=== PATIENT | female | born 1980 | race Caucasian/White ===

== ENCOUNTER 2016-07-21 17:17 | Emergency (ER) | payer MEDICAID, OTHER ==
[~2016-07-21] VITALS: Wt 89.0 kg
[2016-07-21] MEDS ORDERED: CLIN-73 PO (19:28)
[2016-07-21] MEDS ORDERED: CLINDAMYCIN 300 MG INJ IM ONE (19:30)
--- NOTE | 2016-07-21 19:34 | ERD ---
ER Documentation Chief Complaint Date/Time DATE: 07/21/16 TIME: 19:31 Chief Complaint LEFT BIG TOE PAIN X 4 DAYS HPI This is a 36-year-old female presents to the ER with left big toe pain that started 4 days ago. Patient has been having left great toe nail bed to pass and pain. She denies any toenail pain. Patient denies any fevers or chills. She went to her primary care doctor on Monday and got cephalexin, she has been taking antibiotics however has not worked. Patient denies any fevers or chills. She does have a past medical history of diabetes, she is compliant with her medication. She denies any trauma. ROS . 12 point review of systems was done, all negative except per HPI. Medications Home Meds Active Scripts Clindamycin Hcl* (Clindamycin Hcl*) 300 Mg Capsule, 300 MG PO TID for 7 Days, CAP Prov:MEGAN HUFFMAN Anne 07/21/16 PMhx/Soc History of Surgery: No Anesthesia Reaction: No Hx Neurological Disorder: No Hx Respiratory Disorders: No Hx Cardiac Disorders: No Hx Psychiatric Problems: No Hx Miscellaneous Medical Probl: Yes (DM) Hx Alcohol Use: No Hx Substance Use: No Hx Tobacco Use: No Smoking Status: Never smoker Physical Exam Vitals Vital Signs Date Time Temp Pulse Resp B/P Pulse Ox O2 Delivery O2 Flow Rate FiO2 07/21/16 17:20 98.8 77 18 153/94 99 Physical Exam GENERAL: The patient is well developed and appropriate for usual state of health , in no apparent distress. HEENT: Atraumatic. CHEST: Clear to auscultation bilaterally. There are no rales, wheezes or rhonchi. HEART: Regular rate and rhythm. No murmurs, clicks, rubs or gallops. EXTREMITIES: Left great toe: There is a collection of pus to the lower nail bed. NEURO: Alert and oriented. SKIN: There is no apparent rash or petechia. The skin is warm and dry. Results 24 hrs Current Medications Medications (Trade) Dose Ordered Sig/Shari Route PRN Reason Start Time Stop Time Status Last Admin Dose Admin Clindamycin Phosphate (Cleocin) 600 mg ONCE ONCE IM 07/21/16 19:30 07/21/16 19:31 Procedures/MDM Paronychia was drained with one poke with an 18 gauge needle. Patient was given clindamycin IM with no complications here in the ER. Patient will be given clindamycin to take at home. At this time patient is afebrile and well- appearing. I doubt severe or deep space infection. She has normal range of motion of her toe I doubt septic joint. Doubt osteomyelitis. Patient is to follow-up with her primary care doctor within 1-2 days or return to ER sooner if symptoms worsen. My medical decision making was shared with the patient she understands and agrees with plan. Departure Diagnosis: Primary Impression: Toe infection Condition: Stable Patient Instructions: Paronychia Additional Instructions: Llame al doctor MAANA y felton theresa KALINA PARA DENTRO DE 1-2 PHILIP.Dgale a la secretaria que nosotros le instruimos hacer esta kalina.Avise o llame si conde condicin se empeora antes de la kalina. Regresa aqui si peor o no mejor. MEGAN HUFFMAN Jul 21, 2016 19:34
== END 2016-07-21 19:55 | disposition home or self-care (01) ==
LOC: FTE 17:17
DX: L08.9 Local infection of the skin and subcutaneous tissue, unspecified (principal); E11.9 Type 2 diabetes mellitus without complications
CPT/HCPCS: 96372; Z7502; Z7610

== ENCOUNTER 2016-07-28 16:40 | Emergency (ER) | payer MEDICAID ==
[~2016-07-28] VITALS: Ht 160 cm; Wt 92.0 kg
[~2016-07-28 16:40] MED LIST: CLIN-73 PO
[2016-07-28 16:42] VITALS: Ht 160 cm; Wt 92.0 kg
--- NOTE | 2016-07-28 18:02 | RADRPT ---
PROCEDURE: XR Right Tibia and Fibula. CLINICAL INDICATION: Right lower leg pain. TECHNIQUE: Two views. Frontal and lateral. COMPARISON: No prior studies are available for comparison. FINDINGS: There is no fracture or dislocation. The soft tissues are normal. Articular surfaces are intact. There is no lytic or blastic lesion. There is no radiopaque foreign body. IMPRESSION: 1. Normal images of the right tibia and fibula. RPTAT: QQ .Lew Aguirre MD, MD Date Time Electronically viewed and signed by .Lew Aguirre MD, MD on 07/28/2016 18:01 .R/
[2016-07-28] MEDS ORDERED: IBUP-1542 PO (18:22)
--- NOTE | 2016-07-28 18:29 | ERD ---
ER Documentation Chief Complaint Date/Time DATE: 07/28/16 TIME: 18:25 Chief Complaint s/p mech fall has right leg pain HPI Patient is a 36-year-old female past medical history of diabetes who presents emergency department with right lower leg pain status post a mechanical fall. Patient states that she was making her bed earlier today when she accidentally tripped over the leg of her mattress frame. She denies any previous injuries to the affected extremity. Patient denies any numbness or tingling to the affected extremity. Patient is able to ambulate without any difficulty. Patient has any fevers or chills. ROS All systems reviewed and are negative except as per history of present illness. Medications Home Meds Active Scripts Ibuprofen* (Motrin*) 600 Mg Tab, 600 MG PO Q6, #30 TAB Prov:GERMAIN CLARK PA-C 07/28/16 Clindamycin Hcl* (Clindamycin Hcl*) 300 Mg Capsule, 300 MG PO TID for 7 Days, CAP Prov:MEGAN HUFFMAN 07/21/16 Allergies Allergies: Coded Allergies: No Known Allergy (Unverified , 07/21/16) PMhx/Soc History of Surgery: Yes (APPENDECTOMY) Anesthesia Reaction: No Hx Neurological Disorder: No Hx Respiratory Disorders: No Hx Cardiac Disorders: No Hx Psychiatric Problems: No Hx Miscellaneous Medical Probl: Yes (DM) Hx Alcohol Use: No Hx Substance Use: No Hx Tobacco Use: No Smoking Status: Never smoker Physical Exam Vitals Vital Signs Date Time Temp Pulse Resp B/P Pulse Ox O2 Delivery O2 Flow Rate FiO2 07/28/16 16:42 98.1 87 20 134/87 99 Physical Exam GENERAL: Well-developed, well-nourished female. Appears in no acute distress. HEAD: Normocephalic, atraumatic. EYES: Pupils are equally reactive bilaterally. EOMs grossly intact. No conjunctival erythema. ENT: Moist mucous membranes. No uvula deviation. No kissing tonsils. NECK: Supple. No meningismus. Normal range of motion of the neck. LUNG: Clear to auscultation bilaterally. No rhonchi, wheezing, rales or coarse breath sounds. HEART: Regular rate and rhythm. No murmurs, rubs or gallops. EXTREMITIES: Equal pulses bilaterally. No peripheral clubbing, cyanosis or edema. No unilateral leg swelling. NEUROLOGIC: Alert and oriented. Moving all four extremities without any difficulty. Normal speech. Steady gait. SKIN: Normal color. Warm and dry. No rashes or lesions. RIGHT LOWER LEG: No obvious deformity. Minimal swelling noted. Ecchymosis noted to mid fibula, lateral aspect. Skin intact. Normal ROM of knee and ankle. Tender to palpation of the mid and distal tib/fib. No joint line tenderness. Sensation intact to light touch. Neurovascularly intact. (Able to plantarflex, dorsiflex, yousif foot, invert foot, raise big toe.) 2+ DP and DT pulses. Compartments soft. No calf pain elicited. Procedures/MDM ED COURSE: The patient was stable throughout ED course. I kept the patient and/or family informed of laboratory and diagnostic imaging results throughout the ED course. DIAGNOSTIC IMAGING: Read by radiologist. DIAGNOSTIC IMAGING REPORT Patient: KIERRA HOOKS : 1980 Age: 36 Sex: F MR #: [id number] DOS: 07/28/16 1712 Ordering MD: GERMAIN CLARK PA-C Location: [facility] Room/Bed: PROCEDURE: XR Right Tibia and Fibula. CLINICAL INDICATION: Right lower leg pain. TECHNIQUE: Two views. Frontal and lateral. COMPARISON: No prior studies are available for comparison. FINDINGS: There is no fracture or dislocation. The soft tissues are normal. Articular surfaces are intact. There is no lytic or blastic lesion. There is no radiopaque foreign body. IMPRESSION: 1. Normal images of the right tibia and fibula. RPTAT: QQ .Lew Aguirre MD, Date Time Electronically viewed and signed by .Lew Aguirre MD, on 07/28/2016 18:01 .R/ CC: GERMAIN CLARK PA-C DIAGNOSTIC IMAGING REPORT Patient: KIERRA HOOKS : 1980 Age: 36 Sex: F MR #: [id number] DOS: 07/28/16 1712 Ordering MD: GERMAIN CLARK PA-C Location: [facility] Room/Bed: PROCEDURE: XR Right Ankle. CLINICAL INDICATION: Right ankle pain. Trauma due to a fall. TECHNIQUE: 3 views. Frontal, lateral, and oblique. COMPARISON: None. FINDINGS: There is no fracture or dislocation. The soft tissues are normal. Articular surfaces are intact. There is no lytic or blastic lesion. There is no radiopaque foreign body. IMPRESSION: 1. Normal images of the right ankle. RPTAT: QQ .Lew Aguirre MD, MD Date Time Electronically viewed and signed by .Lew Aguirre MD, on 07/28/2016 18:29 .R/ CC: GERMAIN CLARK PA-C MEDICAL DECISION MAKING: This is a 36-year-old female who presents with right lower leg pain status post mechanical fall earlier today. Patient states that she tripped over the leg of her bed mattress frame. Vital signs were reviewed. Patient was afebrile. X- ray imaging of the right tibia-fibula was negative. X-ray imaging of the right ankle was negative. Given these findings, the patient's presentation is most consistent with ankle sprain. I have a much lower clinical concern for ankle dislocation, ankle fracture, tibia fracture, fibula fracture, tibial plateau fracture, Maisonneuve fracture, foot fracture, osteomyelitis, septic joint, gout, osteoarthritis, DVT , compartment syndrome. At this time, unable to rule out any tendon and ligament injuries. PRESCRIPTIONS: Ibuprofen DISCHARGE: At this time, patient is stable for discharge and outpatient management. LAURO therapy advised. I have instructed the patient to follow-up with his/her primary care physician in 1-2 days. I have discussed with the patient the possibility of needing to see an orthopedic nurse for further workup and imaging if the pain persists. I have instructed the patient to promptly return to the ER for any new or worsening symptoms including increased pain, swelling, redness, warmth or fever. The patient and/or family expressed understanding of and agreement with this plan. All questions were answered. Home care instructions were provided. Departure Diagnosis: Primary Impression: Pain of left leg Condition: Stable Patient Instructions: Possible Causes of Low Back or Leg Pain Referrals: [facility] YOU HAVE RECEIVED A MEDICAL SCREENING EXAM AND THE RESULTS INDICATE THAT YOU DO NOT HAVE A CONDITION THAT REQUIRES URGENT TREATMENT IN THE EMERGENCY DEPARTMENT. FURTHER EVALUATION AND TREATMENT OF YOUR CONDITION CAN WAIT UNTIL YOU ARE SEEN IN YOUR DOCTORS OFFICE WITHIN THE NEXT 1-2 DAYS. IT IS YOUR RESPONSIBILITY TO MAKE AN APPOINTMENT FOR FOLOW-UP CARE. IF YOU HAVE A PRIMARY DOCTOR --you should call your primary doctor and schedule an appointment IF YOU DO NOT HAVE A PRIMARY DOCTOR YOU CAN CALL OUR PHYSICIAN REFERRAL HOTLINE AT IF YOU CAN NOT AFFORD TO SEE A PHYSICIAN YOU CAN CHOSE FROM THE FOLLOWING [facility] [address] [facility] [address] [facility] [facility] [address] [facility] [address] [facility] [address] [facility]. [facility] [address] [facility]. [facility] YOU HAVE RECEIVED A MEDICAL SCREENING EXAM AND THE RESULTS INDICATE THAT YOU DO NOT HAVE A CONDITION THAT REQUIRES URGENT TREATMENT IN THE EMERGENCY DEPARTMENT. FURTHER EVALUATION AND TREATMENT OF YOUR CONDITION CAN WAIT UNTIL YOU ARE SEEN IN YOUR DOCTORS OFFICE WITHIN THE NEXT 1-2 DAYS. IT IS YOUR RESPONSIBILITY TO MAKE AN APPOINTMENT FOR FOLOW-UP CARE. IF YOU HAVE A PRIMARY DOCTOR --you should call your primary doctor and schedule and appointment IF YOU DO NOT HAVE A PRIMARY DOCTOR YOU CAN CALL OUR PHYSICIAN REFERRAL HOTLINE AT . IF YOU CAN NOT AFFORD TO SEE A PHYSICIAN YOU CAN CHOSE FROM THE FOLLOWING [facility] INSTITUTIONS: [facility] [address] [place] [address] [facility] [address] [place] [address] [facility] + [facility] [address] [place] [address] Additional Instructions: Call your primary care doctor TOMORROW for an appointment during the next 1-2 days.See the doctor sooner or return here if your condition worsens before your appointment time. Unable to rule out any ligament or tendon injuries at this time. Patient advised that she will need to follow-up with her primary care physician for referral to an orthopedic nurse if her pain persists. GERMAIN CLARK PA-C Jul 28, 2016 18:29
== END 2016-07-28 18:32 | disposition home or self-care (01) ==
LOC: FTE 16:40
DX: S89.91XA Unspecified injury of right lower leg, initial encounter (principal); E11.9 Type 2 diabetes mellitus without complications; W01.0XXA Fall on same level from slipping, tripping and stumbling without subsequent striking against object, initial encounter; Y92.9 Unspecified place or not applicable
CPT/HCPCS: 73590

== ENCOUNTER 2017-05-24 09:08 | Emergency (ER) | END 2017-05-24 14:07 | disposition home or self-care (01) ==